=== PATIENT | female | born 1995 | race African-American/Black ===

== ENCOUNTER 2018-09-19 09:44 | Emergency (ER) | payer OTHER ==
[2018-09-19 09:58] VITALS: BP 119/69; PULSE 74; TEMP 99.2; BMI 37.0
--- NOTE | 2018-09-19 10:37 | PDOC ---
History of Present Illness - General Chief Complaint: Pain Stated Complaint: ABDOMINAL PAIN Time Seen by Provider: 09/19/18 10:06 - History of Present Illness Initial Comments: 09/19/18 11:21 Patient is a 23-year-old female with past medical history of Chlamydia, who presents to the emergency department by ambulance today for lower abdominal pain for 2 weeks. Patient states that she has severe cramping when the pain starts. The pain comes and goes. Patient states that she is not taking a medication for her pain today. Patient states she uses Depo-Provera for control. Denies any new sexual partners. She states that the pain is the worst in the right adnexal region. Pt has had one . Pt also reports that " the doctors had to cut through extra tissue to get the baby out". Denies fevers , chills, nausea, vomiting, constipation, diarrhea, frequency, urgency and hematuria. Past History - Travel Traveled outside of the country in the last 30 days: No Close contact w/someone who was outside of country & ill: No - Past Medical History Allergies/Adverse Reactions: Allergies Allergy/AdvReac Type Severity Reaction Status Date / Time No Known Allergies Allergy Verified 05/25/16 13:08 Home Medications: Ambulatory Orders Ibuprofen 800 mg PO TID #30 tablet 09/19/18 Ondansetron [Zofran Odt -] 4 mg SL TID #10 od.tablet 09/19/18 Anemia: Yes COPD: No CHF: No - Surgical History GI Surgery: No - Immunization History Immunization Up to Date: Yes - Suicide/Smoking/Psychosocial Hx Smoking Status: No Smoking History: Never smoked Have you smoked in the past 12 months: No Number of Cigarettes Smoked Daily: 0 Information on smoking cessation initiated: No Hx Alcohol Use: No Drug/Substance Use Hx: No Substance Use Type: None Review of Systems - Review of Systems Able to Perform ROS?: Yes Comments:: 09/19/18 11:21 CONSTITUTIONAL: Absent: fever, chills, diaphoresis, generalized weakness, malaise, loss of appetite HEENT: Absent: rhinorrhea, nasal congestion, throat pain, throat swelling, difficulty swallowing, mouth swelling, ear pain, eye pain, visual Changes CARDIOVASCULAR: Absent: chest pain, loss of consciousness, palpitations, irregular heart rate, peripheral edema RESPIRATORY: Absent: cough, shortness of breath, dyspnea with exertion, orthopnea, wheezing, stridor, hemoptysis GASTROINTESTINAL: Present: lower abdominal cramping Absent: abdominal pain, abdominal distension, nausea, vomiting, diarrhea, constipation, melena, hematochezia GENITOURINARY: Absent: dysuria, frequency, urgency, hesitancy, hematuria, flank pain, genital pain MUSCULOSKELETAL: Absent: myalgia, arthralgia, joint swelling SKIN: Absent: rash, itching, pallor HEMATOLOGIC/IMMUNOLOGIC: Absent: easy bleeding, easy bruising, lymphadenopathy, frequent infections ENDOCRINE: Absent: unexplained weight gain, unexplained weight loss, heat intolerance, cold intolerance NEUROLOGIC: Absent: headache, focal weakness or paresthesias, dizziness, unsteady gait, seizure, mental status changes, bladder or bowel incontinence PSYCHIATRIC: Absent: anxiety, depression, suicidal or homicidal ideation, hallucinations. Is the patient limited Vietnamese proficient: No *Physical Exam - Vital Signs Last Vital Signs Temp Pulse Resp BP Pulse Ox 99.2 F 74 18 119/69 100 09/19/18 09:55 09/19/18 09:55 09/19/18 09:55 09/19/18 09:55 09/19/18 09:55 - Physical Exam Comments: 09/19/18 11:21 GENERAL: Well developed, well nourished. Awake and alert. No acute distress. HEENT: Normocephalic, atraumatic. PERRLA, EOMI. No conjunctival pallor. Sclera are non- icteric. Moist mucous membranes. Oropharynx is clear. NECK: Supple. Full ROM. No JVD. Carotid pulses 2+ and symmetric, without bruits. No thyromegaly. No lymphadenopathy. CARDIOVASCULAR: Regular rate and rhythm. No murmurs, rubs, or gallops. Distal pulses are 2+ and symmetric. PULMONARY: No evidence of respiratory distress. Lungs clear to auscultation bilaterally. No wheezing, rales or rhonchi. ABDOMINAL: TTP of the R adnexal region, suprapubic region and L adenexal region. R adenexal more tender than the L. Soft. Non-distended. No rebound or guarding. No organomegaly. Normoactive bowel sounds. Pelvic: External genitalia normal without lesions.Vaginal vault is clear without blood. Normal physiologic discharge without odor. Cervix is long and closed. No cervical motion tenderness. Uterus is nontender and normal in size. Adnexa are nontender and without masses. MUSCULOSKELETAL Normal range of motion at all joints. No bony deformities or tenderness. No CVA tenderness. EXTREMITIES: No cyanosis. No clubbing. No edema. No calf tenderness. SKIN: Warm and dry. Normal capillary refill. No rashes. No jaundice. NEUROLOGICAL: Alert, awake, appropriate. Cranial nerves 2-12 intact. No deficits to light touch and temperature in face, upper extremities and lower extremities. No motor deficits in the in face, upper extremities and lower extremities. Normoreflexic in the upper and lower extremities. Normal speech. Toes are down- going bilaterally. Gait is normal without ataxia. PSYCHIATRIC: Cooperative. Good eye contact. Appropriate mood and affect. ED Treatment Course - LABORATORY CBC & Chemistry Diagram: 09/19/18 13:30 09/19/18 13:30 Medical Decision Making - Medical Decision Making 09/19/18 15:09 Patient is a 23-year-old female with past medical history of Chlamydia, who presents to the emergency department by ambulance today for lower abdominal pain for 2 weeks. DDX includes: endometriosis, ovarian cysts, torsion, PID, STI , UTI. Unlikely appendicitis d/t no abdominal pain on palpation. -On exam pt with adenexal tenderness. No abdominal pain -No CMT on exam. Vaginal cultures collected. STD testing done in ED. HIV negative at this time -transvaginal us with no acute findings. No ovarian cysts or torsion. 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 I answered all of the patient's questions. The patient was satisfied with the care received and felt comfortable with the discharge plan and treatment plan. The Patient agrees to follow up with the primary care physician/specialist within 24-72 hours. Return precautions were given. *DC/Admit/Observation/Transfer Diagnosis at time of Disposition: Abdominal pain Qualifiers: Abdominal location: unspecified location Qualified Code(s): R10.9 - Unspecified abdominal pain - Discharge Dispostion Disposition: HOME Condition at time of disposition: Stable Decision to Admit order: No - Prescriptions Prescriptions: Ibuprofen 800 mg PO TID #30 tablet Ondansetron [Zofran Odt -] 4 mg SL TID #10 od.tablet - Referrals Referrals: Baldo Rodriguez MD [Staff Physician] - Isabel Manzo DO [Staff Physician] - - Patient Instructions Printed Discharge Instructions: DI for Endometriosis Additional Instructions: You have lower abdominal cramping Your ultrasound was negative for ovarian cysts Your lab work was also normal. Please take Motrin 800mg for your symptoms. You may take it every 8 hours. Do not exceed 3,000mg a day. You may take zofran 4mg every 8 hours as needed for nausea Follow up with your INVENTORY ACCOUNTANT this week It is important you get your next depo shot Return to the ED for nausea, vomiting, worsening abdominal pain, or if you have any changes in your symptoms - Post Discharge Activity Forms/Work/School Notes: Back to Work
[2018-09-19] MEDS ORDERED: ACETAMINOPHEN 650 MG/20.3 ML ORAL SOLUTION (CUPS) PO ONE (10:40)
--- NOTE | 2018-09-19 12:18 | PDOC ---
*Physical Exam - Vital Signs Last Vital Signs Temp Pulse Resp BP Pulse Ox 99.2 F 74 18 119/69 100 09/19/18 09:55 09/19/18 09:55 09/19/18 09:55 09/19/18 09:55 09/19/18 09:55 - Physical Exam Comments: 09/19/18 12:18 The patient was examined by [NIRU Forte] under my direct supervision. I personally evaluated the patient. I concur with the above findings and the plan of care.
[2018-09-19] MEDS ORDERED: ACETAMINOPHEN 325 MG TABLET (FP) PO ONE (12:52)
[2018-09-19] MEDS ORDERED: ACETAMINOPHEN 325 MG TABLET (FP) ONE (13:37)
[2018-09-19 13:41] LABS: BASO % 0.5 % (0-2.0); EOS % 2.5 % (0-4.5); HEMATOCRIT 39.1 % (32.4-45.2); HEMOGLOBIN 12.8 GM/dL (10.7-15.3); LYMPH % 43.5 % (8-40); MCH 25.6 pg (25.7-33.7); MCHC 32.6 g/dl (32.0-36.0); MEAN CELL VOLUME 78.6 fl (80-96); MEAN PLT VOLUME 8.3 fl (7.5-11.1); MONO % 7.4 % (3.8-10.2); NEUT % 46.1 % (42.8-82.8); PLATELET COUNT 239 K/MM3 (134-434); RBC 4.98 M/mm3 (3.60-5.2); RDW 13.5 % (11.6-15.6); WHITE BLOOD COUNT 6.2 K/mm3 (4.0-10.0)
[2018-09-19 13:43] LABS: URINE APPEARANCE CLEAR; URINE BILIRUBIN NEGATIVE (<2.0 mg/dL); URINE COLOR YELLOW; URINE GLUCOSE (UA) NEGATIVE (NEGATIVE); URINE KETONE 1+ (NEGATIVE); URINE LEUK ESTERASE NEGATIVE (NEGATIVE); URINE NITRITE NEGATIVE (NEGATIVE); URINE PROTEIN NEGATIVE (NEGATIVE); URINE UROBILINOGEN NEGATIVE mg/dL (0.2-1.0)
[2018-09-19 13:54] LABS: EPI CELLS FEW /HPF (FEW); URINE MUCUS RARE
[2018-09-19 13:56] LABS: INR 1.05 (0.83-1.09); PROTHROMBIN TIME (PATIENT) 12.4 SEC (9.7-13.0)
[2018-09-19 14:09] LABS: ALBUMIN 4.1 g/dl (3.4-5.0); ALK PHOS 91 U/L (45-117); ANION GAP 8 MMOL/L (8-16); BILIRUBIN,TOTAL 0.3 mg/dL (0.2-1); BLOOD UREA NITROGEN 8 mg/dL (7-18); CALCIUM 9.2 mg/dL (8.5-10.1); CHLORIDE 108 mmol/L (98-107); CO2 26 mmol/L (21-32); CREATININE 0.7 mg/dL (0.55-1.3); GLUCOSE,RANDOM 96 mg/dL (74-106); POTASSIUM 3.8 mmol/L (3.5-5.1); SGOT/AST 38 U/L (15-37); SGPT/ALT 79 U/L (13-61); SODIUM 141 mmol/L (136-145)
== END 2018-09-19 16:53 | disposition home or self-care (01) ==
LOC: JER 09:44
DX: R10.9 Unspecified abdominal pain (principal)
CPT/HCPCS: 36415; 76830-TC; 80053; 81003; 81015; 84703; 85025; 85610; 87070; 87086; 87205; 87389; 87491; 87591; 99283-25

== ENCOUNTER 2019-01-15 21:26 | Emergency (ER) | payer OTHER ==
[2019-01-15 21:34] VITALS: BP 128/68; PULSE 68; TEMP 98.7; BMI 44.7
[2019-01-15 22:48] LABS: BASO % 0.5 % (0-2.0); EOS % 1.5 % (0-4.5); HEMATOCRIT 37.5 % (32.4-45.2); HEMOGLOBIN 12.6 GM/dL (10.7-15.3); LYMPH % 36.5 % (8-40); MCH 26.5 pg (25.7-33.7); MCHC 33.7 g/dl (32.0-36.0); MEAN CELL VOLUME 78.4 fl (80-96); MEAN PLT VOLUME 8.2 fl (7.5-11.1); MONO % 6.7 % (3.8-10.2); NEUT % 54.8 % (42.8-82.8); PLATELET COUNT 249 K/MM3 (134-434); RBC 4.78 M/mm3 (3.60-5.2); RDW 13.8 % (11.6-15.6); WHITE BLOOD COUNT 7.8 K/mm3 (4.0-10.0)
[2019-01-15 23:10] LABS: ALBUMIN 3.8 g/dl (3.4-5.0); ALK PHOS 127 U/L (45-117); ANION GAP 7 MMOL/L (8-16); BILIRUBIN,TOTAL 0.2 mg/dL (0.2-1); BLOOD UREA NITROGEN 15 mg/dL (7-18); CALCIUM 8.2 mg/dL (8.5-10.1); CHLORIDE 109 mmol/L (98-107); CO2 25 mmol/L (21-32); CREATININE 0.8 mg/dL (0.55-1.3); GLUCOSE,RANDOM 120 mg/dL (74-106); POTASSIUM 3.7 mmol/L (3.5-5.1); SGOT/AST 42 U/L (15-37); SGPT/ALT 66 U/L (13-61); SODIUM 141 mmol/L (136-145); TOT PROT 7.7 g/dl (6.4-8.2)
--- NOTE | 2019-01-15 23:41 | PDOC ---
History of Present Illness - General History Source: Patient, Parent(s) Exam Limitations: No Limitations - History of Present Illness Initial Comments: 01/15/19 23:42 The patient is a 23 year old female with a significant past medical history of asthma and seizures (recently diagnosed) who presents to the emergency department via EMS from home with seizure activity prior to arrival. As per the patient's mother at bedside, the patient was laying down on her chest when she noticed mucus coming out of the patient's mouth uncontrollable followed by eyes watering and rolling. The patient's mother states that it lasted for about 10 minutes 3-4 intermittent pauses. The patient reports that prior to her symptoms she felt oky earlier today other than a slight headache . the patient reports some associated chills on exam and slight chest pain secondary to her episode. The patient reports that her seizure activity first began about 1 month ago by which she went to [facility] . she states that she has had 3 seizure episodes since then but has not had any follow up with neurologist in terms of medicating secondary to pending insurance approval for head CT. The patient denies being on any other medications. She states that she has 4 children (ages 5,3, and 1). She denies any other symptoms or complaints. <Ike Lucas - Last Filed: 01/15/19 23:42> <Radha Kang - Last Filed: 01/16/19 01:45> - General Chief Complaint: Seizure Stated Complaint: SEIZURE Time Seen by Provider: 01/15/19 21:43 Past History <Ike Lucas - Last Filed: 01/15/19 23:42> - Past Medical History Anemia: Yes COPD: No CHF: No - Surgical History GI Surgery: No - Immunization History Immunization Up to Date: Yes - Suicide/Smoking/Psychosocial Hx Smoking Status: No Smoking History: Unknown if ever smoked Have you smoked in the past 12 months: No Number of Cigarettes Smoked Daily: 0 Information on smoking cessation initiated: No Hx Alcohol Use: No Drug/Substance Use Hx: No Substance Use Type: None <Radha Kang - Last Filed: 01/16/19 01:45> - Past Medical History Allergies/Adverse Reactions: Allergies Allergy/AdvReac Type Severity Reaction Status Date / Time No Known Allergies Allergy Verified 01/16/19 01:18 Home Medications: Ambulatory Orders NK [No Known Home Medication] 01/16/19 Review of Systems - Review of Systems Able to Perform ROS?: Yes Comments:: 01/15/19 23:42 CONSTITUTIONAL:(+)chills Absent: fever, no fatigue EYES: Absent: visual changes ENT: Absent: ear pain, no sore throat CARDIOVASCULAR: Absent: chest pain, no palpitations RESPIRATORY:(+) runny nose Absent: cough, no SOB GI: Absent: abdominal pain, no nausea, no vomiting, no constipation, no diarrhea GENITOURINARY: Absent: dysuria, no frequency, no hematuria MUSKULOSKELETAL: Absent: back pain, no arthralgia, no myalgia SKIN: Absent: rash NEURO:(+)seizure activity Absent: headache <Ike Lucas - Last Filed: 01/15/19 23:42> *Physical Exam - Vital Signs Last Vital Signs Temp Pulse Resp BP Pulse Ox 98.7 F 68 20 128/68 100 01/15/19 21:31 01/15/19 21:31 01/15/19 21:31 01/15/19 21:31 01/15/19 21:31 - Physical Exam Comments: 01/15/19 23:42 GENERAL: (+)A&Ox3 Well-appearing, well-nourished. No apparent distress. HEENT: Normocephalic, atraumatic. PERRL, EOM intact. No tongue trauma CARDIOVASCULAR: Normal S1, S2. Regular rate and rhythm. PULMONARY: Clear to auscultation bilaterally. ABDOMEN: (+)protuberant belly Soft, non-distended, non-tender. EXTREMITIES: Normal ROM in all four extremities. No gross deformities. SKIN: Warm, dry. No rash NEUROLOGICAL: No focal neurological deficits. No loc, no slurred speech. No urinary incontinence <Ike Lucas - Last Filed: 01/15/19 23:42> - Vital Signs Last Vital Signs Temp Pulse Resp BP Pulse Ox 98.7 F 68 20 128/68 100 01/15/19 21:31 01/15/19 21:31 01/15/19 21:31 01/15/19 21:31 01/15/19 21:31 <Radha Kang - Last Filed: 01/16/19 01:45> Moderate Sedation - Procedure Monitoring Vital Signs: Procedure Monitoring Vital Signs Temperature 98.7 F 01/15/19 21:31 Pulse Rate 68 01/15/19 21:31 Respiratory Rate 20 01/15/19 21:31 Blood Pressure 128/68 01/15/19 21:31 O2 Sat by Pulse Oximetry (%) 100 01/15/19 21:31 <Ike Lucas - Last Filed: 01/15/19 23:42> - Procedure Monitoring Vital Signs: Procedure Monitoring Vital Signs Temperature 98.7 F 01/15/19 21:31 Pulse Rate 68 01/15/19 21:31 Respiratory Rate 20 01/15/19 21:31 Blood Pressure 128/68 01/15/19 21:31 O2 Sat by Pulse Oximetry (%) 100 01/15/19 21:31 <Radha Kang - Last Filed: 01/16/19 01:45> ED Treatment Course - LABORATORY CBC & Chemistry Diagram: 01/15/19 22:35 01/15/19 22:35 - ADDITIONAL ORDERS Additional order review: Laboratory Results 01/15/19 01/15/19 22:35 22:35 Sodium 141 Potassium 3.7 Chloride 109 H Carbon Dioxide 25 Anion Gap 7 L BUN 15 Creatinine 0.8 Creat Clearance w eGFR > 60 Random Glucose 120 H Calcium 8.2 L Total Bilirubin 0.2 AST 42 H ALT 66 H Alkaline Phosphatase 127 H Total Protein 7.7 Albumin 3.8 Serum , Qual Negative 01/15/19 22:35 RBC 4.78 MCV 78.4 L MCHC 33.7 RDW 13.8 MPV 8.2 Neutrophils % 54.8 Lymphocytes % 36.5 Monocytes % 6.7 Eosinophils % 1.5 Basophils % 0.5 <Ike Lucas - Last Filed: 01/15/19 23:42> - LABORATORY CBC & Chemistry Diagram: 01/15/19 22:35 01/15/19 22:35 - ADDITIONAL ORDERS Additional order review: Laboratory Results 01/15/19 01/15/19 22:35 22:35 Sodium 141 Potassium 3.7 Chloride 109 H Carbon Dioxide 25 Anion Gap 7 L BUN 15 Creatinine 0.8 Creat Clearance w eGFR > 60 Random Glucose 120 H Calcium 8.2 L Total Bilirubin 0.2 AST 42 H ALT 66 H Alkaline Phosphatase 127 H Total Protein 7.7 Albumin 3.8 Serum , Qual Negative 01/15/19 22:35 RBC 4.78 MCV 78.4 L MCHC 33.7 RDW 13.8 MPV 8.2 Neutrophils % 54.8 Lymphocytes % 36.5 Monocytes % 6.7 Eosinophils % 1.5 Basophils % 0.5 - RADIOLOGY Radiology Studies Ordered: Category Date Time Status HEAD CT WITHOUT CONTRAST [CT] Stat CT Scan 01/15/19 23:38 Ordered <Radha Kang - Last Filed: 01/16/19 01:45> Medical Decision Making - Medical Decision Making 01/16/19 00:30 the mother states the pt had been having seizures since November and went to a hospital but was never referred to a neurologist,was never prescribed any anti seizure medication and never had a ct scan pf the brain This 23-year-old female came in by ambulance from home for a reported witnessed seizure. However the mother describes the episode as the pt's nose ' having mucus running and her eyes going back". The pt did just that and the mother said ,'this is the seizure'. The pt was alert during this episode the mother said her daughter had 3 of these episodes within ten minutes but never has any LOC,no tongue trauma and no urinary incontinence Upon arrival the pt was axox3,no focal neuro deficits 01/16/19 01:34 ct scan of the brain is negative for any acute intracranial pathology, no infarct ,no bleed, no mass, no midline shift -she had no fever, no headache,no confusion I discussed the plan with the patient and her mother. It is important to follow up with a neurologist for further evaluation since the history and presentation of the patent was inconsistent with seizure activity. <Radha Kang - Last Filed: 01/16/19 01:45> *DC/Admit/Observation/Transfer - Attestations Scribe Attestion: 01/15/19 23:43 Documentation prepared by Ike Lucas, acting as director of medical education for Radha Kang MD <Ike Lucas - Last Filed: 01/15/19 23:42> <Radha Kang - Last Filed: 01/16/19 01:45> Diagnosis at time of Disposition: Hyperglycemia, Elevated liver function tests, Atypical seizure - Discharge Dispostion Disposition: HOME Condition at time of disposition: Stable - Referrals Referrals: James Russo MD [Staff Physician] - Artur Smith DO [Staff Physician] - - Patient Instructions Printed Discharge Instructions: DI for Psychogenic Nonepileptic Seizures, DI for Seizure (Not Epilepsy/Seizure Disorder) Additional Instructions: please call the neurologist and make an appointment for further evaluation
== END 2019-01-16 02:25 | disposition home or self-care (01) ==
LOC: JER 21:26
DX: R56.9 Unspecified convulsions (principal); R73.9 Hyperglycemia, unspecified; R79.89 Other specified abnormal findings of blood chemistry
CPT/HCPCS: 36415; 70450-TC; 80053; 84703; 85025; 99282-25

== ENCOUNTER 2022-03-06 02:55 | Emergency (ER) | payer OTHER ==
[2022-03-06 03:11] VITALS: BMI 36.8
[2022-03-06] MEDS ORDERED: OXcarbazepine 300 MG TABLET (UD) PO ONE ×2 (03:36→10:52)
[2022-03-06] MEDS ORDERED: ONDANSETRON 4 MG TABLET PO ONE (03:41)
[2022-03-06] MEDS ORDERED: ONDANSETRON *ODT* 4 MG TABLET ONE (03:45)
[2022-03-06] MEDS ORDERED: LORazepam 2 MG/ML SDV VIAL IVPUSH ONE (04:44)
[2022-03-06 05:15] LABS: BASO % 0.2 % (0-2.0); HEMATOCRIT 38.7 % (32.4-45.2); HEMOGLOBIN 12.6 GM/dL (10.7-15.3); LYMPH % 42.1 % (8-40); MCH 25.8 pg (25.7-33.7); MCHC 32.6 g/dl (32.0-36.0); MEAN CELL VOLUME 79.1 fl (80-96); MEAN PLT VOLUME 7.9 fl (7.5-11.1); MONO % 6.6 % (3.8-10.2); NEUT % 49.1 % (42.8-82.8); PLATELET COUNT 247 10^3/uL (134-434); RBC 4.89 M/mm3 (3.60-5.2); RDW 13.2 % (11.6-15.6)
[2022-03-06 05:36] LABS: BLOOD UREA NITROGEN 17.8 mg/dL (7-18); CALCIUM 8.9 mg/dL (8.5-10.1)
[2022-03-06 05:37] LABS: ALBUMIN 4.3 g/dl (3.4-5.0); MAGNESIUM 2.3 mg/dL (1.8-2.4)
[2022-03-06 05:39] LABS: PHOSPHOROUS 3.8 mg/dL (2.5-4.9)
[2022-03-06 05:42] LABS: BILIRUBIN,TOTAL 0.2 mg/dL (0.2-1); TOT PROT 8.6 g/dl (6.4-8.2)
[2022-03-06 05:59] LABS: PROTHROMBIN TIME (PATIENT) 11.5 SEC (9.7-13.0)
[2022-03-06] MEDS ORDERED: OXcarbazepine 300 MG/5 ML 250 ML BULK BOTTLE PO ONE (10:40)
[2022-03-06] MEDS ORDERED: SODIUM CHLORIDE 1,000 ML IV STA (11:46)
[2022-03-06 13:57] LABS: EPI CELLS 35 /uL (0-25.1); HYALINE CASTS 1 /uL (0-3.1); PH,URINE 5.5 (5.0-8.0); URINE APPEARANCE CLEAR; URINE BACTERIA 248 /uL (0-1359); URINE BILIRUBIN NEGATIVE (NEGATIVE); URINE COLOR YELLOW; URINE GLUCOSE (UA) NEGATIVE (NEGATIVE); URINE KETONE 1+ (NEGATIVE); URINE LEUK ESTERASE NEGATIVE (NEGATIVE); URINE NITRITE NEGATIVE (NEGATIVE); URINE PROTEIN NEGATIVE (NEGATIVE); URINE RBC 19 /uL (0-23.9); URINE WBC 19 /uL (0-25.8)
[2022-03-06 15:59] VITALS: BP 124/66; PULSE 80; TEMP 97.2
== END 2022-03-06 15:30 | disposition home or self-care (01) ==
LOC: JER 02:55
PROC: 3E033GC Introduction of Other Therapeutic Substance into Peripheral Vein, Percutaneous Approach (ICD-10-PCS; principal; 2022-03-06)
DX: R56.9 Unspecified convulsions (principal)
CPT/HCPCS: 36415; 80053; 80183; 81003; 82962; 83735; 84100; 85025; 85610; 85730; 87086; 87186; 93005; 93010; 99284-25; C9803-CS; U0003; U0005

== ENCOUNTER 2022-03-10 13:03 | Emergency (ER) | payer OTHER ==
[2022-03-10 13:35] VITALS: TEMP 98.8; BMI 36.8
[2022-03-10] MEDS ORDERED: OXcarbazepine 300 MG/5 ML 250 ML BULK BOTTLE PO ONE (13:38)
[2022-03-10 14:23] LABS: BASO % 0.4 % (0-2.0); EOS % 1.7 % (0-4.5); HEMATOCRIT 36.4 % (32.4-45.2); HEMOGLOBIN 11.7 GM/dL (10.7-15.3); LYMPH % 51.1 % (8-40); MCH 25.4 pg (25.7-33.7); MCHC 32.1 g/dl (32.0-36.0); MEAN CELL VOLUME 79.1 fl (80-96); MEAN PLT VOLUME 8.3 fl (7.5-11.1); MONO % 5.2 % (3.8-10.2); NEUT % 41.6 % (42.8-82.8); PLATELET COUNT 256 10^3/uL (134-434); RDW 13.6 % (11.6-15.6); WHITE BLOOD COUNT 6.6 K/mm3 (4.0-10.0)
[2022-03-10] MEDS ORDERED: ACETAMINOPHEN 325 MG TABLET (FP) PO ONE (14:28)
[2022-03-10 14:45] LABS: BLOOD UREA NITROGEN 14.2 mg/dL (7-18); CALCIUM 8.6 mg/dL (8.5-10.1)
[2022-03-10 14:46] LABS: ALBUMIN 3.6 g/dl (3.4-5.0)
[2022-03-10 14:49] LABS: CREATININE 0.8 mg/dL (0.55-1.3)
[2022-03-10 14:50] LABS: BILIRUBIN,TOTAL 0.2 mg/dL (0.2-1); TOT PROT 7.5 g/dl (6.4-8.2)
[2022-03-10 15:35] LABS: EPI CELLS >36 /uL (0-25.1); HYALINE CASTS 2 /uL (0-3.1); URINE APPEARANCE CLOUDY; URINE BACTERIA 455 /uL (0-1359); URINE BILIRUBIN NEGATIVE (NEGATIVE); URINE COLOR YELLOW; URINE GLUCOSE (UA) NEGATIVE (NEGATIVE); URINE KETONE NEGATIVE (NEGATIVE); URINE LEUK ESTERASE 2+ (NEGATIVE); URINE NITRITE NEGATIVE (NEGATIVE); URINE PROTEIN NEGATIVE (NEGATIVE); URINE RBC 36 /uL (0-23.9); URINE WBC 77 /uL (0-25.8)
[2022-03-10] MEDS ORDERED: ACETAMINOPHEN 325 MG TABLET (FP) ONE (15:46)
[2022-03-10 15:57] VITALS: BP 117/76; PULSE 81
== END 2022-03-10 16:38 | disposition home or self-care (01) ==
LOC: JER 13:03
DX: G40.89 Other seizures (principal)
CPT/HCPCS: 36415; 80053; 80183; 81003; 84703; 85025; 87077; 87086; 93005; 93010; 99284-25

== ENCOUNTER 2023-06-18 18:18 | Emergency (ER) | payer OTHER ==
[2023-06-18 18:31] VITALS: PULSE 82; RESP 24; BMI 39.1
[2023-06-18] MEDS ORDERED: LORazepam 2 MG/ML SDV VIAL IM STA (19:55)
[2023-06-18] MEDS ORDERED: ONDANSETRON 4 MG/2 ML VIAL IVPB ONE (20:35)
[2023-06-18] MEDS ORDERED: OXcarbazepine 300 MG/5 ML 250 ML BULK BOTTLE PO STA (20:36)
[2023-06-18] MEDS ORDERED: ONDANSETRON 4 MG/2 ML VIAL ONE (20:40)
[2023-06-18 20:55] LABS: BASO % 0.5 % (0-2.0); EOS % 1.8 % (0-4.5); HEMATOCRIT 38.4 % (32.4-45.2); HEMOGLOBIN 12.4 GM/dL (10.7-15.3); LYMPH % 43.4 % (8-40); MCH 24.8 pg (25.7-33.7); MCHC 32.5 g/dl (32.0-36.0); MEAN CELL VOLUME 76.3 fl (80-96); MEAN PLT VOLUME 8.5 fl (7.5-11.1); NEUT % 48.3 % (42.8-82.8); PLATELET COUNT 353 10^3/uL (134-434); RBC 5.02 M/mm3 (3.60-5.2); RDW 13.2 % (11.6-15.6); WHITE BLOOD COUNT 9.3 K/mm3 (4.0-10.0)
[2023-06-18 21:05] LABS: INR 1.04 (0.83-1.09); PROTHROMBIN TIME (PATIENT) 12.1 SEC (9.7-13.0)
[2023-06-18 21:15] LABS: POTASSIUM 4.8 mmol/L (3.5-5.1)
[2023-06-18 21:19] LABS: ALBUMIN 3.8 g/dl (3.4-5.0); BLOOD UREA NITROGEN 10.8 mg/dL (7-18)
[2023-06-18 21:23] LABS: CREATININE 0.8 mg/dL (0.55-1.3)
[2023-06-18 21:24] LABS: BILIRUBIN,TOTAL 0.3 mg/dL (0.2-1); TOT PROT 8.7 g/dl (6.4-8.2)
[2023-06-18] MEDS ORDERED: OXcarbazepine 300 MG TABLET (UD) PO STA (21:30)
[2023-06-18] MEDS ORDERED: ACETAMINOPHEN 1000 MG/100 ML BAG IVPB ONE (22:43)
[2023-06-18] MEDS ORDERED: ACETAMINOPHEN INJECTION 100 ML IVPB ONE (23:13)
[2023-06-19 03:02] VITALS: BP 123/80; TEMP 98.8
== END 2023-06-19 05:15 | disposition home or self-care (01) ==
LOC: JER 18:18
PROC: 3E033NZ Introduction of Analgesics, Hypnotics, Sedatives into Peripheral Vein, Percutaneous Approach (ICD-10-PCS; principal; 2023-06-18)
PROC: 3E033GC Introduction of Other Therapeutic Substance into Peripheral Vein, Percutaneous Approach (ICD-10-PCS; 2023-06-18)
PROC: 3E023GC Introduction of Other Therapeutic Substance into Muscle, Percutaneous Approach (ICD-10-PCS; 2023-06-18)
DX: K92.1 Melena (principal); N93.9 Abnormal uterine and vaginal bleeding, unspecified; G40.909 Epilepsy, unspecified, not intractable, without status epilepticus
CPT/HCPCS: 36415; 71045-TC-FY; 76830-TC; 80053; 82272; 84703; 85025; 85610; 85730; 86850; 86900; 86901; 99285-25

== ENCOUNTER 2023-08-09 08:58 | Emergency (ER) | payer SELFPAY ==
[2023-08-09] MEDS ORDERED: ALBUTEROL SO4 2.5/IPRATROPIUM 0.5 INH SOL 3 ML VIAL.NEB. NEB ONE (09:19)
[2023-08-09 09:23] VITALS: BP 140/88; PULSE 83; RESP 20; TEMP 98; BMI 40.3
[2023-08-09] MEDS ORDERED: predniSONE 20 MG TABLET (UD) PO ONE (09:58)
[2023-08-09] MEDS ORDERED: predniSONE 20 MG TABLET (UD) ONE (10:08)
== END 2023-08-09 10:23 | disposition home or self-care (01) ==
LOC: JERFT 08:58
DX: J45.901 Unspecified asthma with (acute) exacerbation (principal); R07.89 Other chest pain; R06.02 Shortness of breath; R05.9 Cough, unspecified
CPT/HCPCS: 99283-25

== ENCOUNTER 2023-12-20 09:07 | Emergency (ER) | payer OTHER ==
[2023-12-20 09:42] VITALS: RESP 18; BMI 42.2
[2023-12-20] MEDS ORDERED: SODIUM CHLORIDE 1,000 ML IV STA (09:45)
[2023-12-20] MEDS ORDERED: ACETAMINOPHEN 1000 MG/100 ML BAG IVPB ONE (09:45)
[2023-12-20] MEDS ORDERED: ACETAMINOPHEN INJECTION 100 ML IVPB ONE (10:05)
[2023-12-20 10:06] LABS: BASO % 0.1 % (0-2.0); EOS % 1.3 % (0-4.5); HEMATOCRIT 36.9 % (32.4-45.2); HEMOGLOBIN 12.1 GM/dL (10.7-15.3); LYMPH % 31.3 % (8-40); MCH 24.2 pg (25.7-33.7); MCHC 32.9 g/dl (32.0-36.0); MEAN CELL VOLUME 73.7 fl (80-96); MEAN PLT VOLUME 7.1 fl (7.5-11.1); MONO % 7.7 % (3.8-10.2); NEUT % 59.6 % (42.8-82.8); PLATELET COUNT 313 10^3/uL (134-434); RBC 5.01 M/mm3 (3.60-5.2); RDW 13.9 % (11.6-15.6); WHITE BLOOD COUNT 6.4 K/mm3 (4.0-10.0)
[2023-12-20 10:11] LABS: INR 1.09 (0.83-1.09); PROTHROMBIN TIME (PATIENT) 12.6 SEC (9.7-13.0)
[2023-12-20 10:14] LABS: ACTIVATED PTT 26.2 SECONDS (25.2-36.5)
[2023-12-20 10:31] LABS: POTASSIUM 3.7 mmol/L (3.5-5.1)
[2023-12-20 10:33] LABS: ALBUMIN 3.7 g/dl (3.4-5.0)
[2023-12-20 10:34] LABS: BLOOD UREA NITROGEN 7.7 mg/dL (7-18)
[2023-12-20 10:35] LABS: CALCIUM 9.3 mg/dL (8.5-10.1)
[2023-12-20 10:36] LABS: CREATININE 0.9 mg/dL (0.55-1.3)
[2023-12-20 10:38] LABS: BILIRUBIN,TOTAL 0.3 mg/dL (0.2-1)
[2023-12-20] MEDS ORDERED: ALBUTEROL SO4 2.5/IPRATROPIUM 0.5 INH SOL 3 ML VIAL.NEB. NEB ONE (12:35)
[2023-12-20 13:35] VITALS: BP 128/81; PULSE 90; TEMP 98.2
== END 2023-12-20 13:25 | disposition short-term general hospital (02) ==
LOC: JER 09:07
PROC: 3E033NZ Introduction of Analgesics, Hypnotics, Sedatives into Peripheral Vein, Percutaneous Approach (ICD-10-PCS; principal; 2023-12-20)
PROC: 3E0337Z Introduction of Electrolytic and Water Balance Substance into Peripheral Vein, Percutaneous Approach (ICD-10-PCS; 2023-12-20)
PROC: 3E0F7GC Introduction of Other Therapeutic Substance into Respiratory Tract, Via Natural or Artificial Opening (ICD-10-PCS; 2023-12-20)
DX: G89.18 Other acute postprocedural pain (principal); J95.830 Postprocedural hemorrhage of a respiratory system organ or structure following a respiratory system procedure
CPT/HCPCS: 36415; 80053; 85025; 85610; 85730; 86850; 86900; 86901; 99285-25